=== PATIENT | male | born 1940 | race Caucasian/White ===

== ENCOUNTER 2017-08-18 14:35 | Emergency (ER) | END 2017-08-18 17:42 | disposition left against medical advice (07) ==

== ENCOUNTER 2017-08-19 10:47 | Emergency (ER) | END 2017-08-19 16:00 | disposition home or self-care (01) ==

== ENCOUNTER 2018-07-24 13:06 | Emergency (ER) | payer OTHER, MEDICAID ==
[~2018-07-24] VITALS: Ht 167.6 cm; Wt 71.3 kg
[~2018-07-24 13:06] MED LIST: BENA40TA54 PO; CIPR500T4 PO; HYDR25TA6 PO; MECL12.574 PO; MECL25TA2 PO; METO-336 PO; METR500T PO; TRAM50TA2 PO
[2018-07-24 13:11] VITALS: Ht 167.6 cm; Wt 71.3 kg
--- NOTE | 2018-07-24 14:18 | ERD ---
ER Documentation Chief Complaint Chief Complaint high bp HPI The patient is a 77-year-old male, presenting to the ER with his daughter, because of high blood pressure. He had history of chronic headache, complains of increased confusion for the last 3 weeks, has chronic cough, constipation. Does not have any fever, chills, neck pain, chest pain, abdominal pain, vomiting. He does not smoke or drink Past medical history: Hypertension, dementia, dyslipidemia Past surgical history: Left knee arthroplasty ROS All systems reviewed and are negative except as per history of present illness. Medications Home Meds Active Scripts Meclizine Hcl* (Antivert*) 12.5 Mg Tab, 12.5 MG PO Q6H PRN for DIZZINESS, #20 TAB Prov:LOUIS ERWIN MD 08/19/17 Tramadol HCl (Tramadol HCl) 50 Mg Tablet, 50 MG PO Q6 PRN for PAIN, #20 TAB Prov:CARLOS GRIMES A. DO 01/14/16 Metronidazole* (Flagyl*) 500 Mg Tablet, 500 MG PO TID for 7 Days, TAB Prov:ALISON GRIMESSTOLOS A. DO 01/14/16 Ciprofloxacin Hcl* (Ciprofloxacin Hcl*) 500 Mg Tablet, 500 MG PO BID for 7 Days, TAB Prov:ALISON GRIMESSTOLOS A. DO 01/14/16 Meclizine Hcl* (Antivert*) 25 Mg Tablet, 25 MG PO Q6H PRN for d, #20 TAB Prov:KIERAN KIMBLE DO 03/29/15 Reported Medications Metoprolol Succinate* (Toprol XL*) 100 Mg Tab.sr.24h, 100 MG PO DAILY, TAB 03/29/15 Hydrochlorothiazide (Hydrochlorothiazide) 25 Mg Tablet, 1 TAB PO DAILY 05/13/11 Benazepril Hcl* (Lotensin*) 40 Mg Tablet, 1 TAB PO DAILY 05/13/11 Allergies Allergies: Coded Allergies: No Known Drug Allergy (Verified Allergy, Mild, 01/14/16) PMhx/Soc History of Surgery: Yes (LEFT KNEE SX ) Anesthesia Reaction: No Hx Neurological Disorder: No Hx Respiratory Disorders: No Hx Cardiac Disorders: Yes (HTN) Hx Psychiatric Problems: No Hx Miscellaneous Medical Probl: No Hx Alcohol Use: No Hx Substance Use: No Hx Tobacco Use: No Physical Exam Vitals Vital Signs Date Temp Pulse Resp B/P (MAP) Pulse Ox O2 O2 Flow FiO2 Time Delivery Rate 07/24/18 65 18 171/83 100 Room Air 17:20 (112) 07/24/18 71 18 148/68 100 Room Air 16:37 (94) 07/24/18 59 16 201/67 16:20 (111) 07/24/18 98.5 55 18 189/88 97 13:11 (121) Physical Exam Const: No acute distress. Head: Atraumatic. Eyes: Normal Conjunctiva. ENT: Normal External Ears, Nose and Mouth. Neck: Full range of motion. No meningismus. Resp: Clear to auscultation bilaterally. Cardio: Regular rate and rhythm. Abd: Soft, non distended, normal bowel sounds, non tender. Skin: No petechiae or rashes. Back: No midline or flank tenderness. Ext: No cyanosis, or edema. Neur: Awake and alert. No focal deficit Psych: Normal Mood and Affect. Result Diagram: 07/24/18 1500 07/24/18 1500 Results 24 hrs Laboratory Tests Test 07/24/18 15:00 07/24/18 15:21 White Blood Count 9.1 10^3/ul Red Blood Count 4.48 10^6/ul Hemoglobin 13.2 g/dl Hematocrit 40.0 % Mean Corpuscular Volume 89.3 fl Mean Corpuscular Hemoglobin 29.5 pg Mean Corpuscular Hemoglobin Concent 33.0 g/dl Red Cell Distribution Width 11.9 % Platelet Count 230 10^3/UL Mean Platelet Volume 9.6 fl Immature Granulocytes % 1.500 % Neutrophils % 63.1 % Lymphocytes % 25.7 % Monocytes % 8.7 % Eosinophils % 0.4 % Basophils % 0.6 % Nucleated Red Blood Cells % 0.0 /100WBC Immature Granulocytes # 0.140 10^3/ul Neutrophils # 5.7 10^3/ul Lymphocytes # 2.3 10^3/ul Monocytes # 0.8 10^3/ul Eosinophils # 0.0 10^3/ul Basophils # 0.1 10^3/ul Nucleated Red Blood Cells # 0.0 10^3/ul Prothrombin Time 12.5 Sec Prothrombin Time Ratio 1.0 INR International Normalized Ratio 0.92 Activated Partial Thromboplast Time 29.2 Sec Sodium Level 142 mmol/L Potassium Level 4.3 mmol/L Chloride Level 105 mmol/L Carbon Dioxide Level 27 mmol/L Anion Gap 10 Blood Urea Nitrogen 25 mg/dl Creatinine 1.13 mg/dl Est Glomerular Filtrat Rate mL/min mL/min Glucose Level 115 mg/dl Calcium Level 9.8 mg/dl Troponin I < 0.012 ng/ml B-Type Natriuretic Peptide 340 PG/ML Bedside Urine pH (LAB) 5.5 Bedside Urine Protein (LAB) Negative Bedside Urine Glucose (UA) Negative Bedside Urine Ketones (LAB) Trace Bedside Urine Blood Negative Bedside Urine Nitrite (LAB) Negative Bedside Urine Leukocyte Esterase (L Negative Current Medications Medications Dose Sig/Jose Start Time Status Last (Trade) Ordered Route PRN Stop Time Admin Dose Reason Admin Hydralazine 10 mg ONCE ONCE 07/24/18 DC 07/24/18 HCl IV 15:30 16:18 (Apresoline) 07/24/18 15:31 Procedures/[place] [id number] Radiology Main Line: [phone] DIAGNOSTIC IMAGING REPORT Patient: STEPHAN KWONG : 1940 Age: 77 Sex: M MR #: [id number] DOS: 07/24/18 1445 Ordering MD: MARIANO PLAZA MD Location: E/R Room/Bed: PROCEDURE: CT brain without contrast CLINICAL INDICATION: Altered level of consciousness TECHNIQUE: CT of the brain without contrast performed on a multidetector CT scanner, with multiplanar reformats. One or more of the following dose reduction techniques were used: Automated exposure control, adjustment in mA and / or kV according to patient size, use of iterative reconstructive technique. CTDIvol = 38 mGy; DLP = 634 mGy-cm. DICOM images are available. COMPARISON: 08/19/2017 FINDINGS: No acute intracranial hemorrhage is identified. No extra-axial fluid collection is seen. There is no mass effect. No midline shift is identified. The ventricles and sulci are mildly enlarged compatible with volume loss. There are mild areas of hypodensity in the periventricular - deep white matter which are nonspecific but suggestive of chronic small vessel ischemic changes. Conklin-white junctions are preserved. Atherosclerotic calcifications of the proximal intracranial arteries are noted. Calvarium and skull base are intact. Mastoid air cells and imaged paranasal sinuses grossly clear. IMPRESSION: 1. No evidence of acute intracranial pathology. 2. Mild volume loss, with mild chronic small vessel ischemic changes. RPTAT: VV .Richard Frank MD, MD Date Time Electronically viewed and signed by .Richard Frank MD, MD on 07/24/2018 15:48 .O/ CC: MARIANO PLAZA MD [id number] [place] [id number] Radiology Main Line: [phone] DIAGNOSTIC IMAGING REPORT Patient: STEPHAN KWONG : 1940 Age: 77 Sex: M MR #: [id number] DOS: 07/24/18 1445 Ordering MD: MARIANO PLAZA MD Location: E/R Room/Bed: PROCEDURE: XR Chest. CLINICAL INDICATION: Chest pain TECHNIQUE: Single frontal view of the chest was obtained. COMPARISON: CR CHEST 03/29/2015 FINDINGS: The heart is within normal limits. The thoracic aorta is calcified. There is mild elevation of the right diaphragm. The lungs are clear. There is no pleural effusion or pneumothorax. RPTAT: AA IMPRESSION: No acute disease. Calcified aorta consistent with atherosclerotic disease. .Nirmal Verde MD, Date Time Electronically viewed and signed by .Nirmal Verde MD, MD on 07/24/2018 15:3 7 .S/ CC: MARIANO PLAZA MD [phone] EKG: Read by emergency physician Rate/Rhythm: Sinus bradycardia 55 beats per min QRS, ST, T-waves: No ST elevation, no T wave inversion, SA, LAD Impression: Abnormal EKG MEDICAL MAKING DECISION: The patient is a 77-year-old male, presenting with acute accelerated hypertension, dementia. He was treated with hydralazine 10 mg IV for acute accelerated hypertension with good response, is stable for outpatient follow-up. The differential diagnoses considered include but are not limited to medical noncompliance, UTI, pneumonia, worsening dementia Departure Diagnosis: Primary Impression: Accelerated hypertension Additional Impressions: Dementia Anemia Condition: Good Comments I discussed the findings with the patient. I advised the patient to follow-up with the primary physician in about 2-3 days, sooner if needed and return if any concern. Disclaimer: Inadvertent spelling and grammatical errors are likely due to EHR/dictation software use and do not reflect on the overall quality of patient care. Also, please note that the electronic time recorded on this note does not necessarily reflect the actual time of the patient encounter. MARIANO PLAZA MD Jul 24, 2018 14:18
[2018-07-24] MEDS ORDERED: hydrALAzine 20 MG INJ ONE (15:22)
[2018-07-24] MEDS ORDERED: hydrALAzine 20 MG INJ IV ONE (15:30)
[2018-07-24 17:20] VITALS: BP 171/83; PULSE 65; RESP 18
== END 2018-07-24 17:35 | disposition home or self-care (01) ==
LOC: E/R 13:06
DX: I10 Essential (primary) hypertension (principal); F03.90 Unspecified dementia, unspecified severity, without behavioral disturbance, psychotic disturbance, mood disturbance, and anxiety; D64.9 Anemia, unspecified; R07.9 Chest pain, unspecified; R41.82 Altered mental status, unspecified
CPT/HCPCS: 36415; 70450; 71045; 80048; 83880; 84484; 85025; 85610; 85730; 93005; 96374; 99285; J0360; P9612; 81003